=== PATIENT | male | born 1960 | race Caucasian/White ===

== ENCOUNTER 2021-12-01 10:36 | Outpatient (CLI) | payer OTHER, SELFPAY ==
--- NOTE | ~2021-12-01 | CT_ITS ---
EXAMINATION:CT lung screening DATE: 12/01/2021 11:16 INDICATION: Encounter for screening for malignant neoplasm of respiratory organs. Smoker who quit 10 years ago with 37 pack year history. TECHNIQUE: Computed tomography (CT) of the chest was performed without intravenous contrast. Automate d exposure control and iterative reconstruction technique were employed. The dose-length product (DLP ) was 300.23 mGy-cm. COMPARISON: None. FINDINGS: There is mild emphysema. There is mild atelectasis bilaterally. There is a 5 mm nodule at m inor fissure. There is a 6 mm nodule in right lower lobe. There are 3 mm and 2 mm nodules in left upp er lobe. There is a 2 mm nodule in left lower lobe. No pleural effusion. The heart size is normal. Th ere are coronary artery calcifications. No pericardial effusion. There is diffuse hepatic steatosis. Partially visualized is a right supraclavicular lipoma. There is severe cervical and thoracic spondyl osis. IMPRESSION: 1. Lung-RADS category 3: Probably benign. Further evaluation is recommended with noncontrast low-dose chest CT in 6 months. Reviewed, dictated and finalized at location A. IMPRESSION: 1. Lung-RADS category 3: Probably benign. Further evaluation is recommended wit h noncontrast low-dose chest CT in 6 months.
--- NOTE | ~2021-12-01 | CT_ITS ---
EXAMINATION: CT soft tissue neck w con DATE: 12/01/2021 11:15 INDICATION: Right neck lump. TECHNIQUE: Computed tomography (CT) of the neck was performed with 75 mL Omnipaque-350 intravenous co ntrast. Automated exposure control and iterative reconstruction technique were employed. The dose-kelby gth product was 710.77 mGy-cm. COMPARISON: None FINDINGS: There are no pathologically enlarged lymph nodes. There is a 4.9 x 3.1 cm lipoma in right s upraclavicular region. There is plaque in the proximal internal carotid arteries with less than 50% s tenosis relative to normal distal artery lumen diameters. There is severe cervical and thoracic spond ylosis. IMPRESSION: 1. Lipoma in right supraclavicular region. Reviewed, dictated and finalized at location A.
[2021-12-01 11:07] LABS: Estimated Glomerular Filt Rate > 60
== END 2021-12-01 10:37 | disposition home or self-care (01) ==
PROVIDERS: PCP Family Medicine; Visit Provider Family Medicine
DX: Z12.2 Encounter for screening for malignant neoplasm of respiratory organs (principal); Z87.891 Personal history of nicotine dependence; R22.1 Localized swelling, mass and lump, neck
CPT/HCPCS: 70491; 71271; Q9967

== ENCOUNTER 2021-12-21 01:37 | Day surgery (SDC) | payer OTHER, SELFPAY ==
--- NOTE | 2021-12-21 07:57 | WPDANESEPPF ---
Anes - Initial Pre Proc Eval Procedure: Operation Date: 12/21/21 10:00 Proposed Procedures p Screening Colonoscopy - Nile Allen MD Date/Time: 12/21/21 07:57 Surgeon: Nile Allen MD Pre Op Diagnosis: neoplasm screening Patient Data Age: 61 Gender: M Height: 1.78 m Weight: 95 kg Allergies Allergy/AdvReac Type Severity Reaction Status Date / Time No Known Allergies Allergy Unknown Verified 12/21/21 09:04 Home Medications Medication Instructions Recorded Confirmed Type lisinopril 20 1 tablet PO DAILY #90 tablet 10/25/21 12/21/21 Rx mg-hydrochlorothiazide 25 mg tablet omeprazole 40 mg capsule,delayed 40 mg PO DAILY #30 cap 11/02/21 12/21/21 Rx release rosuvastatin 10 mg tablet 10 mg PO QHS #90 tablet 11/06/21 12/21/21 Rx cholecalciferol (vitamin D3) 1,250 1,250 mcg PO WEEKLY #12 tablet 12/04/21 12/21/21 Rx mcg (50,000 unit) tablet Patient hx anesthesia problems: none Family hx anesthesia problems: none Results Review: All pre-operative results and documents have been reviewed as part of the pre-operative evaluation. [facility] Past Medical History Medical History (Updated 12/21/21 @ 07:58 by Constantine Garcia MD) BMI 32.0-32.9,adult Dyslipidemia Essential (primary) hypertension GERD without esophagitis History of esophageal stricture Surgical History Surgical History H/O foot surgery (~2014) Left foot H/O knee surgery (~2015) Right knee History of carpal tunnel surgery History of esophageal dilatation 2010 History of rotator cuff surgery Family History Family History Mother Breast cancer Diabetes mellitus Father Cerebrovascular accident Acute myocardial infarction Social History Social History Smoking packs per day: 2 Smoking cigarettes per day: 40.0 Years smoked: 30 Smoking pack-years: 60.00 Smoking status: Former smoker Tobacco type: cigarettes Smoking end date: 08/26/11 Alcohol intake: current Drinks per week: 3 Substance use: never Substance use type: does not use Living arrangements: with family 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 Informed Consent: The patient's anesthetic plan and its attendant risks and benefits were discussed with the patient/family/POA. Questions were solicited and answers provided to the satisfaction of the patient/family/POA.
[2021-12-21 09:05] VITALS: BP 146/91; PULSE 75; RESP 18; TEMP 36.6; O2SAT 99; BMI 30.6
--- NOTE | 2021-12-21 09:21 | WPDGICN ---
Assessment and Plan Assessment and plan (1) Encounter for screening colonoscopy: Code(s): Z12.11 - Encounter for screening for malignant neoplasm of colon Status: Acute Assessment and Plan: Patient presents today for screening colonoscopy. Appears to be at average risk for colon polyps. Further recommendations will be given after endoscopy. GI Consult Note Consult date/time: 12/21/21 09:21 HPI: Franklin Torres is a 61 year old male Presents for screening colonoscopy. Patient's current weight appetite bowel movements are normal. He denies abdominal pain. He has had no bleeding. Family history noncontributory. His last colonoscopy 11 years ago was unremarkable. Patient presents today for neoplasia screening colonoscopy. Review of Systems Review of Systems: All systems reviewed & are unremarkable except as noted in HPI and below PMFSH Past Medical History Medical History (Updated 12/21/21 @ 09:22 by Nile Allen MD) BMI 32.0-32.9,adult Dyslipidemia Essential (primary) hypertension GERD without esophagitis History of esophageal stricture Surgical History Surgical History H/O foot surgery (~2014) Left foot H/O knee surgery (~2015) Right knee History of carpal tunnel surgery History of esophageal dilatation 2010 History of rotator cuff surgery Family History Family History Mother Breast cancer Diabetes mellitus Father Cerebrovascular accident Acute myocardial infarction Social History Social History Smoking packs per day: 2 Smoking cigarettes per day: 40.0 Years smoked: 30 Smoking pack-years: 60.00 Smoking status: Former smoker Tobacco type: cigarettes Smoking end date: 08/26/11 Alcohol intake: current Drinks per week: 3 Substance use: never Substance use type: does not use Living arrangements: with family 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 Spiritual care concerns: No Meds Home Medications and Allergies Home Medications Medication Instructions Recorded Confirmed Type lisinopril 20 1 tablet PO DAILY #90 tablet 10/25/21 12/21/21 Rx mg-hydrochlorothiazide 25 mg tablet omeprazole 40 mg capsule,delayed 40 mg PO DAILY #30 cap 11/02/21 12/21/21 Rx release rosuvastatin 10 mg tablet 10 mg PO QHS #90 tablet 11/06/21 12/21/21 Rx cholecalciferol (vitamin D3) 1,250 1,250 mcg PO WEEKLY #12 tablet 12/04/21 12/21/21 Rx mcg (50,000 unit) tablet Allergies Allergy/AdvReac Type Severity Reaction Status Date / Time No Known Allergies Allergy Unknown Verified 12/21/21 09:04 Vital Signs Vital Signs - 24 hr 12/21/21 09:05 Temperature 97.8 F Pulse Rate 75 Respiratory Rate 18 Blood Pressure 146/91 H Pulse Oximetry 99 Exam Narrative: Physical exam reveals patient to be alert. Vital signs stable. HEENT exam is unremarkable. Patient is anicteric. Lungs are clear to auscultation and percussion. Heart is without murmur or extra sounds. Abdominal exam bowel sounds are present soft nontender with no hepatosplenomegaly. Digital external rectal exam is normal.
[2021-12-21] MEDS: LACTATED RINGERS 1,000 ML 150 ML IV CONT (09:31)
[2021-12-21 10:35] VITALS: BP 118/72; PULSE 68; RESP 13; O2SAT 97
[2021-12-21] MEDS: SIMETHICONE ORAL SUSPENSION 20 MG/0.3 ML 30 ML BOTTLE 0.6 ML IRRIGATION (10:36)
[2021-12-21 10:45] VITALS: BP 138/96; PULSE 66; RESP 15; O2SAT 100
[2021-12-21 10:55] VITALS: BP 140/91; PULSE 65; RESP 19; O2SAT 100
== END 2021-12-21 11:01 | disposition home or self-care (01) ==
PROVIDERS: PCP Family Medicine; Visit Provider Internal Medicine Gastroenterology
PROC: 0DJD8ZZ Inspection of Lower Intestinal Tract, Via Natural or Artificial Opening Endoscopic (ICD-10-PCS; CPT 45378; principal; 2021-12-21 10:00)
DX: Z12.11 Encounter for screening for malignant neoplasm of colon (principal); D12.3 Benign neoplasm of transverse colon; K62.1 Rectal polyp; K57.30 Diverticulosis of large intestine without perforation or abscess without bleeding; K64.8 Other hemorrhoids; I10 Essential (primary) hypertension; E78.5 Hyperlipidemia, unspecified; K21.9 Gastro-esophageal reflux disease without esophagitis; Z87.891 Personal history of nicotine dependence; E66.9 Obesity, unspecified; Z68.30 Body mass index [BMI] 30.0-30.9, adult
CPT/HCPCS: 45385; 88305; J2704; J7120

== ENCOUNTER 2022-12-04 16:04 | Outpatient (CLI) | payer OTHER, SELFPAY ==
[2022-12-04 16:52] LABS: Kit Draw Collected
== END 2022-12-04 16:05 | disposition home or self-care (01) ==
LOC: ANHGOSHLAB 16:05
PROVIDERS: PCP Family Medicine; Visit Provider Nurse Practitioner Family
DX: Z00.00 Encounter for general adult medical examination without abnormal findings (principal); E55.9 Vitamin D deficiency, unspecified; E78.5 Hyperlipidemia, unspecified; I10 Essential (primary) hypertension; Z12.5 Encounter for screening for malignant neoplasm of prostate
CPT/HCPCS: 36415

== ENCOUNTER 2023-01-10 08:08 | Outpatient (CLI) | payer OTHER, SELFPAY ==
--- NOTE | 2023-01-25 00:25 | WPDHOMESLEEP ---
Sleep Study - Home Unattended Date of Study: 01/10/23 Ordering Provider: Ailyn Figueroa NP Interpreting Provider: Cynthia King MD Home Sleep Study Type: Watch PAT Height: 1.8 m Weight: 97.522 kg Body Mass Index: 29.9 Neck Circumference (inches): 16 Coyote: 4 Reason for Sleep Study Loud snoring, restless sleep Sleep History Franklin Torres is a 62-year-old man with a long history of loud snoring. He tosses and turns all night. He has been having these problems since he was in the . There is a family history of sleep issues, both his mother and brother have been diagnosed with sleep apnea. He occasionally awakens from sleep feeling short of breath. He frequently awakens at night with heartburn, belching or coughing. Frequently snores, occasionally loudly enough that others complain. Occasionally has difficulty sleeping with a cold. He occasionally wakes up gasping for breath at night. He rarely has breathing problems at night observed by others. He rarely sweats excessively at night. He does not notice his heart pounding or beating irregularly at night. He rarely falls asleep during the day. He does not fall asleep while driving. He does not fall asleep involuntarily. He does not have loss of muscle tone with strong emotion. He rarely has daytime difficulties due to excessive sleepiness. He does not feel paralyzed on waking or falling asleep. He rarely has vivid dreamlike scenes on waking or falling asleep. He does not feel afraid to go to sleep. He rarely has nightmares. He rarely remembers his dreams. He constantly has racing thoughts. He occasionally feels sad or depressed. He frequently has anxiety. He frequently has muscular tension. He occasionally notices parts of his body jerking. He rarely kicks at night. He occasionally has crawling and aching feelings in his legs. He rarely has leg pain at night. He rarely has morning jaw pain. he does not grind his teeth during sleep. He frequently is bothered by pain during the day. He occasionally is awakened by pain at night. He frequently wakes up feeling stiff in the morning. He occasionally wakes up with sore achy muscles. He frequently wakes up with pain in the neck and spine. He has headaches, fatigue, memory problems and insomnia. He takes antacids regularly Normal bedtime is 9:00 p.m. falling asleep within 30-40 minutes. He wakes at 4:00 a.m.. During the night, he wakes 3-4 times. It may take him 30-40 minutes to return to sleep. These awakenings occur in the middle of the night and in the physician office assistant hours. When he wakes in the middle of the night, he looks at his telephone. He keeps the same schedule on weekends, waking up at 4:30 a.m. instead of 4:00 a.m.. He estimates getting between 4 and 5 hours of sleep at night. He does not take naps. A short nap is not refreshing. Habits: Tobacco, quit 9 years ago. Caffeine, 2 cups of coffee a day. Alcohol, 2-3 drinks a day. No recreational substances. [facility] Past Medical History Medical History BMI 32.0-32.9,adult Dyslipidemia Essential (primary) hypertension Former smoker GERD without esophagitis History of esophageal stricture Lung nodule seen on imaging study Surgical History Surgical History H/O foot surgery (~2014) Left foot H/O knee surgery (~2015) Right knee History of carpal tunnel surgery History of esophageal dilatation 2010 History of rotator cuff surgery Family History Family History Mother Breast cancer Diabetes mellitus Father Cerebrovascular accident Acute myocardial infarction Social History Social History Smoking packs per day: 2 Smoking cigarettes per day: 40.0 Years smoked: 30 Smoking pack-years: 60.00 Smoking status: For
[2023-01-25 00:32] VITALS: BMI 29.9
--- NOTE | 2023-08-29 09:06 | SLEEP ---
pt stated he has no teeth he feels that the oral tc is not a good tx option for him. He is waiting on the [facility] to make a decision on pap he wishes to be taken off call back list
== END 2023-01-11 10:40 | disposition home or self-care (01) ==
LOC: ANHCSM 08:08
PROVIDERS: PCP Family Medicine; Visit Provider Nurse Practitioner Family
DX: G47.33 Obstructive sleep apnea (adult) (pediatric) (principal); R40.0 Somnolence; E78.2 Mixed hyperlipidemia; Z87.891 Personal history of nicotine dependence; K21.9 Gastro-esophageal reflux disease without esophagitis
CPT/HCPCS: 95800